=== PATIENT | female | born 1970 | race Caucasian/White ===

== ENCOUNTER 2017-08-05 13:53 | Outpatient (CLI) | payer OTHER ==
--- NOTE | 2017-08-05 16:36 | MMO ---
BILATERAL MAMMOGRAMS: DATE: 08/05/17 HISTORY: Screening mammography. COMPARISON: 10/10/09, 03/31/14, 09/26/15, and 10/11/15. FINDINGS: Heterogeneously dense fibroglandular tissue is again demonstrated. The focal asymmetric density at t he far medial aspect of the left breast has continued to become more pronounced since the previous e xam, with concern for underlying mass. No other new dominant mass or suspicious calcifications are a pparent. The study was evaluated with the assistance of computer-aided detection. IMPRESSION: Further progression of the focal asymmetric density of the left breast medial aspect, as detailed ab ove. BIRADS 0: Incomplete: Need Additional Imaging Evaluation and/or Prior Mammograms for Comparison Patient will be recalled for additional diagnostic imaging of the left breast. Sonogram should be sc heduled in case it is needed. The facility will notify the patient of the need for additional imaging services. POS: JENNY
== END 2017-08-05 13:54 | disposition home or self-care (01) ==
LOC: MAMMO 13:53
PROVIDERS: ATTEND Family Medicine
DX: Z12.31 Encounter for screening mammogram for malignant neoplasm of breast (principal)
CPT/HCPCS: 77067; G0202

== ENCOUNTER → 2017-08-20 | Day surgery (SDC) | payer OTHER ==
--- NOTE | 2017-08-20 15:33 | ULT ---
ULTRASOUND GUIDED LEFT BREAST BIOPSY: INDICATION: Region of heterogeneously decreased echogenicity in the left breast 10 o'clock position 6 cm from th e nipple. TECHNIQUE: Informed consent was obtained. Preprocedure ultrasound again demonstrated the heterogeneous lobular mass of the left breast 10 o'clock position 6 cm from the nipple. The library acquisitions technician noted this as 3 c m from the nipple on the construction carpenters helper images, but this lesion does correspond to the comparison diagnostic evaluation of 08/08/17. A site overlying this left breast lesion was marked. The site was prepped a nd draped in the usual sterile fashion. Buffered 1% Lidocaine was administered. Under ultrasound g uidance, 5 separate core samples were obtained of the lesion. A biopsy clip was then placed under u ltrasound guidance within the lesion. Pressure was held at the biopsy site until hemostasis was obt ained. The patient tolerated the procedure without difficulty. IMPRESSION: BI-RADS category 4 - suspicious abnormality. The heterogeneous, hypoechoic lesion within the left b reast 10 o'clock position was biopsied by ultrasound. Will await pathology report. POS: JENNY
--- NOTE | 2017-08-20 15:33 | MMO ---
LEFT BREAST DIAGNOSTIC MAMMOGRAM STATUS POST ULTRASOUND GUIDED BIOPSY CLIP IMAGES 08/20/17 INDICATION: Status post ultrasound guided biopsy of the left breast 10 o'clock lesion. COMPARISON: Prior diagnostic evaluation dated 08/08/17. FINDINGS: There is a biopsy clip in the region of increased density of the left breast 10 o'clock position. IMPRESSION: BI-RADS 4: Suspicious Abnormality - Status post ultrasound guided core biopsy. Appropriate clip depl oyment is present. POS: JENNY
== END ==
LOC: ULT 12:56
PROVIDERS: ATTEND Family Medicine
PROC: 0HBU3ZX Excision of Left Breast, Percutaneous Approach, Diagnostic (ICD-10-PCS; principal; 2017-08-20)
DX: N60.32 Fibrosclerosis of left breast (principal)
CPT/HCPCS: 19083; 88305; G0206-LT

== ENCOUNTER 2018-02-25 09:09 | Outpatient (CLI) | payer OTHER | END 2018-02-25 09:10 | disposition home or self-care (01) | LOC: BICMAMMO 09:09 | PROVIDERS: ATTEND Nurse Practitioner | DX: R92.8 Other abnormal and inconclusive findings on diagnostic imaging of breast (principal); Z80.3 Family history of malignant neoplasm of breast | CPT/HCPCS: G0279 ==

== ENCOUNTER 2019-06-15 08:05 | Outpatient (CLI) | payer OTHER ==
--- NOTE | 2019-06-15 09:56 | MMO ---
Bilateral MAMMO Bilat Screen [facility]. CLINICAL HISTORY: Patient is 48 years old and is seen for screening. The patient has the following family history of breast cancer: maternal aunt, malignant (generic). The patient has no personal history of cancer. The patient has a history of left needle biopsy in August, - benign. VIEWS: The views performed were: bilateral craniocaudal with tomosynthesis; bilateral mediolateral oblique with tomosynthesis; and bilateral exaggerated craniocaudal. FILMS COMPARED: The present examination has been compared to prior imaging studies performed at [facility] on 02/25/2018, and at [facility] on 08/05/2017, 08/08/2017 and 08/20/2017. MAMMOGRAM FINDINGS: The breasts are heterogeneously dense, which could obscure a lesion on mammography. There is a stable focal asymmetry with associated biopsy clip seen in the left breast. There are no suspicious masses, suspicious calcifications, or new areas of architectural distortion. IMPRESSION: THERE IS NO MAMMOGRAPHIC EVIDENCE OF MALIGNANCY. A ROUTINE FOLLOW-UP MAMMOGRAM IN 1 YEAR IS RECOMMENDED. THE RESULTS OF THIS EXAM WERE SENT TO THE PATIENT. ACR BI-RADS Category 2 - Benign finding MAMMOGRAPHY NOTE: 1. A negative mammogram report should not delay a biopsy if a dominant of clinically suspicious mass is present. 2. Approximately 10% to 15% of breast cancers are not detected by mammography. 3. Adenosis and dense breasts may obscure an underlying neoplasm. Reported by: CLEMENTE GONZALEZ MD Electonically Signed: [id number]
== END 2019-06-15 08:06 | disposition home or self-care (01) ==
LOC: BICMAMMO 08:05
PROVIDERS: ATTEND Nurse Practitioner
DX: Z12.31 Encounter for screening mammogram for malignant neoplasm of breast (principal); Z80.3 Family history of malignant neoplasm of breast; Z91.89 Other specified personal risk factors, not elsewhere classified
CPT/HCPCS: 77063; 77067

== ENCOUNTER 2023-03-03 17:30 | Outpatient (CLI) | payer OTHER | END 2023-03-03 17:31 | disposition home or self-care (01) | LOC: SLEEPLAB 17:30 | PROVIDERS: ATTEND Nurse Practitioner | DX: G47.33 Obstructive sleep apnea (adult) (pediatric) (principal); R53.83 Other fatigue; E11.9 Type 2 diabetes mellitus without complications; E66.9 Obesity, unspecified; Z68.35 Body mass index [BMI] 35.0-35.9, adult | CPT/HCPCS: 95800 ==